=== PATIENT | male | born 1985 | race Caucasian/White ===

== ENCOUNTER 2024-10-23 21:13 | Inpatient (IN) | payer OTHER, MEDICAID ==
[~2024-10-23] VITALS: Ht 160 cm; Wt 59.0 kg
[2024-10-23] MEDS: TETANUS, DIPHTHERIA, PERTUSSIS VAC/PF 0.5ML (>10YR OLD) IM ONE (23:01)
[2024-10-24] MEDS: AMPICILLIN SOD/SULBACTAM NA 3 G in SODIUM CHLORIDE 0.9% 100 ML IV SCH (01:23)
[2024-10-24 01:25] LABS: BASOPHILS % 0.4 % (0.0-2.0); EOSINOPHILS % 0.0 % (0.0-5.0); HEMATOCRIT. 41.4 % (42.0-52.0); HEMOGLOBIN. 14.1 g/dL (14.0-18.0); LYMPHOCYTES % 8.4 % (20.0-50.0); MEAN PLATELET VOLUME 8.5 fl (7.4-10.4); MONOCYTES % 5.0 % (2.0-8.0); NEUTROPHILS % 86.2 % (40.0-76.0); PLATELET 262 x1000/uL (130-400); RED BLOOD CELL COUNT 4.31 mill/uL (4.7-6.1); RED CELL DISTRIBUTION WIDTH 13.4 % (11.6-14.6)
[2024-10-24 01:36] LABS: CREATININE 0.8 mg/dL (0.6-1.3); UREA NITROGEN BLOOD 15 mg/dL (9-23)
[2024-10-24 03:14] VITALS: BP 125/68; PULSE 58; RESP 20; TEMP 36.5
[2024-10-24] MEDS ORDERED: NALOXONE HCL 0.4MG/ML VIAL IV PRN (04:00)
[2024-10-24] MEDS: HYDROCODONE/ACETAMINOPHEN 10/325MG TABLET PO PRN (04:27)
[2024-10-24 08:00] VITALS: BP 118/67; PULSE 56; RESP 18; TEMP 36.8; O2SAT 99
[2024-10-24 09:21] LABS: BASOPHILS % 0.4 % (0.0-2.0); EOSINOPHILS % 0.2 % (0.0-5.0); HEMATOCRIT. 39.8 % (42.0-52.0); HEMOGLOBIN. 13.8 g/dL (14.0-18.0); LYMPHOCYTES % 20.1 % (20.0-50.0); MEAN PLATELET VOLUME 8.5 fl (7.4-10.4); MONOCYTES % 10.9 % (2.0-8.0); NEUTROPHILS % 68.4 % (40.0-76.0); PLATELET 249 x1000/uL (130-400); RED BLOOD CELL COUNT 4.10 mill/uL (4.7-6.1); RED CELL DISTRIBUTION WIDTH 13.7 % (11.6-14.6)
[2024-10-24 10:43] LABS: HEPATITIS C AB NON REACTIVE (Neg) (Negative)
[2024-10-24 12:00] VITALS: BP 122/64; PULSE 61; RESP 18; TEMP 36.7; O2SAT 99
[2024-10-24] MEDS: POTASSIUM CHLORIDE 20MEQ TABLET SR PO NR (13:17)
[2024-10-24 16:00] VITALS: BP 119/83; PULSE 56; RESP 18; TEMP 37.1; O2SAT 100
[2024-10-24 18:14] VITALS: BP 132/60; PULSE 70; TEMP 97.8; O2SAT 97
== END 2024-10-24 18:48 | disposition home or self-care (01) | DRG 158 ==
LOC: ER 21:13 → 8EST 10-24 01:34 → EDBEDREQ 10-24 01:47 → EDBEDREQTM 10-24 01:47 → ENRESERV 10-24 02:25
PROVIDERS: ADMIT Internal Medicine; ATTEND Internal Medicine
DX: S02.40FA Zygomatic fracture, left side, initial encounter for closed fracture (principal); S02.85XA Fracture of orbit, unspecified, initial encounter for closed fracture; S02.40DA Maxillary fracture, left side, initial encounter for closed fracture; D72.829 Elevated white blood cell count, unspecified; M79.641 Pain in right hand; M79.89 Other specified soft tissue disorders; V19.9XXA Pedal cyclist (driver) (passenger) injured in unspecified traffic accident, initial encounter; Y93.89 Activity, other specified; Y92.89 Other specified places as the place of occurrence of the external cause; Y99.8 Other external cause status
CPT/HCPCS: 36415; 70486; 73130; 80048; 84145; 85025; 86705; 87340; 90715; 99285; J0295; J7050